=== PATIENT | female | born 1970 | race Caucasian/White ===

== ENCOUNTER 2021-08-02 23:42 | Emergency (ER) | payer BC ==
[2021-08-03 00:09] VITALS: RESP 18
[2021-08-03] MEDS ORDERED: DIAZEPAM 5 MG/ML 2 ML INJ IVP STA (00:18)
[2021-08-03] MEDS ORDERED: NITROGLYCERIN SL TABS 0.4 MG TAB SUBLINGUAL STA (00:18)
[2021-08-03] MEDS ORDERED: GLUCAGON 1 MG/ML VIAL IVP STA (00:18)
--- NOTE | 2021-08-03 00:19 | ED ---
ENT HPI - General Chief complaint: ENT Stated complaint: tky stuck in throat Time Seen by Provider: 08/02/21 23:53 Source: patient, RN notes reviewed, old records reviewed Mode of arrival: ambulatory Limitations: no limitations - History of Present Illness Initial comments: This is a 50-year-old female to the emergency. Patient comes in with esophageal foreign body. Patient presents today for body in esophagus, patient of trip he will bleeding. This happened to her once in the past but 5 years ago. Patient has no shortness of breath or other complaints currently MD complaint: sore throat -: days(s) Location: throat Severity: moderate Severity scale (1-10): 4 Quality: stabbing Consistency: constant Improves with: none Worsens with: none Context- Dental: history of dental caries Context- Ear: other Associated Symptoms: pain with swallowing - Related Data Allergies Allergy/AdvReac Type Severity Reaction Status Date / Time No Known Allergies Allergy Verified 08/02/21 23:59 Review of Systems ROS Statement: Those systems with pertinent positive or pertinent negative responses have been documented in the HPI. ROS Other: All systems not noted in ROS Statement are negative. Past Medical History Past Medical History: GERD/Reflux History of Any Multi-Drug Resistant Organisms: None Reported Past Surgical History: Appendectomy Past Psychological History: No Psychological Hx Reported Smoking Status: Never smoker Past Alcohol Use History: None Reported Past Drug Use History: Unable to Obtain General Exam Limitations: no limitations General appearance: alert, in no apparent distress Head exam: Present: atraumatic, normocephalic, normal inspection Eye exam: Present: normal appearance, PERRL, EOMI. Absent: scleral icterus, conjunctival injection, periorbital swelling ENT exam: Present: normal exam, mucous membranes moist Neck exam: Present: normal inspection. Absent: tenderness, meningismus, lymphadenopathy Respiratory exam: Present: normal lung sounds bilaterally. Absent: respiratory distress, wheezes, rales, rhonchi, stridor Cardiovascular Exam: Present: normal rhythm, tachycardia, normal heart sounds. Absent: systolic murmur, diastolic murmur, rubs, gallop, clicks GI/Abdominal exam: Present: soft, normal bowel sounds. Absent: distended, tenderness, guarding, rebound, rigid Extremities exam: Present: normal inspection, full ROM, normal capillary refill. Absent: tenderness, pedal edema, joint swelling, calf tenderness Back exam: Present: normal inspection Neurological exam: Present: alert, oriented X3, CN II-XII intact Psychiatric exam: Present: normal affect, normal mood Skin exam: Present: warm, dry, intact, normal color. Absent: rash Course Vital Signs 08/02/21 08/03/21 23:56 00:03 Temperature 98.9 F Pulse Rate 103 H Respiratory 20 18 Rate Blood Pressure 147/87 O2 Sat by Pulse 99 Oximetry - Reevaluation(s) Reevaluation #1: 08/03/21 01:31 Medical record is reviewed Reevaluation #2: 08/03/21 01:31 Patient is unable to pass form body currently Medical Decision Making - Medical Decision Making 50 female to the emergency department for evaluation, patient Dese for evaluation of esophageal foreign body unable to be past. Patient is given be discharged home as he cannot treatments different facility - Radiology Data Radiology results: report reviewed (Chest x-rays negative for acute disease), image reviewed Disposition Clinical Impression: Esophageal foreign body Disposition: HOME SELF-CARE Condition: Good Instructions (If sedation given, give patient instructions): Esophageal Foreign Body (ED) Is patient prescribed a controlled substance at d/c from ED?: No Referrals: None,Stated [Primary Care Provider] - 1-2 days
--- NOTE | 2021-08-03 01:12 | XR ---
EXAMINATION TYPE: XR chest 1V portable DATE OF EXAM: 08/03/2021 COMPARISON: NONE HISTORY: Foreign body TECHNIQUE: 2 views FINDINGS: Heart and mediastinum are normal. Lungs are clear. Diaphragm is normal. Bony thorax is inta ct. IMPRESSION: Normal chest.
[2021-08-03 01:49] VITALS: BP 132/72; PULSE 88; TEMP 97.8
== END 2021-08-03 01:48 | disposition home or self-care (01) ==
LOC: EC 23:42
DX: T18.108A Unspecified foreign body in esophagus causing other injury, initial encounter (principal); X58.XXXA Exposure to other specified factors, initial encounter
CPT/HCPCS: 71045; 99283; 96374; 96375; J1610; J3360

== ENCOUNTER → 2023-11-25 | Outpatient (CLI) | payer OTHER ==
--- NOTE | 2023-11-25 11:45 | US ---
EXAMINATION TYPE: US liver DATE OF EXAM: 11/25/2023 COMPARISON: NONE CLINICAL INDICATION: Female, 53 years old with history of R74.8 ABNORMAL LEVELS OF OTHER SERUM ENZYME S; elevated liver enzymes. TECHNIQUE: Multiple sonographic images of the right upper quadrant are obtained. FINDINGS: EXAM MEASUREMENTS: Liver Length: 14.7 cm Gallbladder Wall: .3 cm CBD: 0.5 cm Right Kidney: 9.5 x 3.7 x 4.1 cm TAXICAB COORDINATOR NOTES: Pancreas: wnl Liver: Hyperechoic area seen 1.9 x 1.7 x 3.3 cm. Gallbladder: Multiple stones seen 5 cm transverse. Evidence for sonographic Sales's sign: no CBD: wnl Right Kidney: wnl IMPRESSION: 1. Hyperechoic E regular shaped lesion in the right hepatic lobe measuring up to 3.3 cm. Further hector luation with MRI liver mass protocol recommended for complete evaluation. 2. Biliary sludge/cholelithiasis
== END | disposition home or self-care (01) ==
LOC: RADUSWWP 10:04
PROVIDERS: ATTEND Family Medicine
DX: K80.20 Calculus of gallbladder without cholecystitis without obstruction (principal); R74.8 Abnormal levels of other serum enzymes; K76.9 Liver disease, unspecified; Z96.0 Presence of urogenital implants
CPT/HCPCS: 76705

== ENCOUNTER → 2023-12-20 | Outpatient (CLI) | payer OTHER ==
--- NOTE | 2023-12-20 15:35 | MR ---
EXAMINATION TYPE: MR liver wo/w con DATE OF EXAM: 12/20/2023 1:00 PM CLINICAL INDICATION:Female, 53 years old with history of R16.0 HEPATOMEGALY, NOT ELSEWHERE CLASSIFIED ; PHH, Abnormal U/S, Left sided abdominal pain COMPARISON: Ultrasound 11/25/2023. TECHNIQUE: Multiplanar multi-sequence imaging was performed without contrast. Post contrast imaging was performed. Post IV contrast subtraction images were also submitted for review. IV Contrast: 7 cc Gadobutrol FINDINGS: LOWER CHEST: No gross irregularity. ABDOMEN Liver: No evidence for cirrhosis. Signal dropout on chemical shift out of phase imaging. There is an arterial enhancing lesion within the left hepatic lobe which is lower T1 signal and is no t apparent high T2 weighted imaging measuring 58 x 59 mm which becomes isointense to background signa l on delayed imaging. No finding to correlate with prior ultrasound lesion definitively visualized. A wedge-shaped area of enhancement series 901 image 301 measuring 33 x by 37 mm also demonstrates iso intense signal to background liver on delayed imaging. No findings on other sequences to definitively correlate with this region. A 11 mm high DWI lesion in the left hepatic lobe is thought to demonstrate demonstrates flash filling on arterial phase imaging as not only seen on delayed imaging. Gallbladder and Bile ducts: No evidence for ductal dilation, or biliary stricture or evidence of chol edocholithiasis. The gallbladder is multiple layering gallstones in the gallbladder lumen. Pancreas: No ductal dilation. No evidence for solid mass. Spleen: Normal for size. Adrenal glands: Unremarkable. Kidneys: No evidence for obstructive uropathy. No suspicious renal masses. Stomach and Bowel: No evidence for bowel wall thickening or evidence for obstruction. Retroperitoneum/Peritoneum: No evidence of pneumoperitoneum or free fluid. Vasculature: No aortic aneurysm. Musculoskeletal: The osseous structures appear intact. Lymph Nodes: No gross evidence for lymphadenopathy. Abdominal wall: Unremarkable. IMPRESSION: 1. No acute process to explain the patient's pain. 2. Left hepatic lobe 5.9 cm arterial enhancing lesion with enhancement characteristics suggesting a benign etiology and favoring hepatic adenoma. A right liver observation correlating with ultrasound f inding is not definitively visualized. There is a right hepatic lobe wedge-shaped area that becomes i sointense to background on delayed imaging which could represent shunt phenomenon no correlating sign al abnormality is seen within this region on other sequences.. Additional small left hepatic lobe pos sible flash filling hemangioma. Short-term follow-up in 6 months recommended to ensure stability. 3. Cholelithiasis. 4. Hepatic steatosis.
== END | disposition home or self-care (01) ==
LOC: RADMRIMAIN 12:05
PROVIDERS: ATTEND Nurse Practitioner Family
DX: K80.20 Calculus of gallbladder without cholecystitis without obstruction (principal); R16.0 Hepatomegaly, not elsewhere classified; K76.0 Fatty (change of) liver, not elsewhere classified
CPT/HCPCS: 74183; A9585